=== PATIENT | male | born 1970 | race Caucasian/White ===

== ENCOUNTER → 2019-05-07 | Outpatient (CLI) | payer BC, SELFPAY ==
[2019-05-07 14:36] VITALS: BMI 29.1
[2019-05-07 16:50] LABS: Absolute Lymphocyte Count 2.43 X10^3/uL (0.83-4.51); Absolute Neutrophil Count 3.8 X10^3/uL (2.0-7.7); Basophil# 0.07 X10^3/uL; Eosinophil# 0.32 X10^3/uL; Eosinophils% 4.3 % (0-5); Hematocrit 50.3 % (40-54); Lymphocyte # 2.43 X10^3/ul (4.0); Mean Corp Hgb Conc 33.8 g/dL (32-36); Mean Corpuscular Hgb 30.4 pg (27.0-32.0); Mean Platelet Vol. 9.4 fl (6.2-12.0); Monocyte# 0.68 X10^3/uL; Monocyte% 9.2 % (0-10); NRBC Flagged by Analyzer 0 % (0-5); Neutrophil # 3.84 X10^3/uL (2.7-7.7); Neutrophil % 52.2 % (47-70); Platelet Count 284 K/mm3 (150-450); RBC Distribution Width CV 12.2 % (11.6-14.6); RBC Distribution Width SD 40.5 fl (35.1-43.9); Red Blood Count 5.59 M/mm3 (4.6-6.2); White Blood Count 7.4 K/mm3 (4.4-11.0)
[2019-05-07 17:06] LABS: ALB/GLOB Ratio 1.2 RATIO (0.9-2.4); AST(SGOT) 21 U/L (15-37); Alanine Aminotransfer ALT/SGPT 41 U/L (16-61); Alkaline Phosphatase 59 U/L (45-117); Anion Gap 3 (5-15); BUN 16 mg/dL (7-18); BUN/Creat Ratio 14.5 RATIO (10-20); Calcium,Total 8.8 mg/dL (8.5-10.1); Chloride 106 mmol/L (98-107); Cholesterol 252 mg/dL (200); EST Glomerular Filtration Rate 76 mL/min (>60); Est Glom Filt Rate - Afr Amer 92 mL/min (>60); Globulin 3.2 g/dL (2.2-4.2); Glucose 90 mg/dL (74-106); High Density Lipoprotein 53 mg/dL; Protein, Total 7.2 g/dL (6.4-8.2); Sodium Level 140 mmol/L (136-145); Triglycerides 231 mg/dL; Very Low Density Lipoprotein 46 mg/dL (5-40)
== END | disposition home or self-care (01) ==
LOC: BIMLAB 14:57
PROVIDERS: PCP Internal Medicine; Referring Provider Internal Medicine; Visit Provider Internal Medicine
DX: Z00.00 Encounter for general adult medical examination without abnormal findings (principal)
CPT/HCPCS: 36415; 80053; 80061; 85025

== ENCOUNTER → 2020-09-01 10:20 | Outpatient (CLI) | payer BC, SELFPAY ==
[2020-09-01 09:57] VITALS: BMI 29.1
[2020-09-01 12:26] LABS: Absolute Lymphocyte Count 2.31 X10^3/uL (0.83-4.51); Basophil# 0.08 X10^3/uL; Basophil% 1.1 % (0-1); Eosinophil# 0.45 X10^3/uL; Hematocrit 50.4 % (40-54); Hemoglobin 16.6 g/dL (13.0-16.5); Lymphocyte # 2.31 X10^3/ul (0.83-4.51); Mean Corp Hgb Conc 32.9 g/dL (32-36); Mean Corpuscular Hgb 29.7 pg (27.0-32.0); Mean Corpuscular Volume 90.2 fL (80-94); Mean Platelet Vol. 9.7 fl (6.2-12.0); Monocyte% 8.1 % (0-10); NRBC Flagged by Analyzer 0 % (0-5); Neutrophil # 3.98 X10^3/uL (2.7-7.7); Neutrophil % 53.5 % (47-70); Platelet Count 287 K/mm3 (150-450); RBC Distribution Width CV 12.5 % (11.6-14.6); RBC Distribution Width SD 41.1 fl (35.1-43.9); Red Blood Count 5.59 M/mm3 (4.6-6.2); White Blood Count 7.4 K/mm3 (4.4-11.0)
[2020-09-01 12:52] LABS: ALB/GLOB Ratio 1.2 RATIO (0.9-2.4); AST(SGOT) 14 U/L (15-37); Alanine Aminotransfer ALT/SGPT 34 U/L (16-61); Albumin, Serum 3.8 g/dL (3.2-5.0); Alkaline Phosphatase 57 U/L (45-117); Anion Gap 5 (5-15); BUN 16 mg/dL (7-18); BUN/Creat Ratio 13.1 RATIO (10-20); Calcium,Total 8.4 mg/dL (8.5-10.1); Chloride 106 mmol/L (98-107); Cholesterol 229 mg/dL (200); Creatinine, Serum 1.22 mg/dL (0.70-1.30); EST Glomerular Filtration Rate 67 mL/min (>60); Est Glom Filt Rate - Afr Amer 81 mL/min (>60); Globulin 3.3 g/dL (2.2-4.2); Glucose 97 mg/dL (74-106); High Density Lipoprotein 52 mg/dL; Potassium 4.1 mmol/L (3.5-5.1); Protein, Total 7.1 g/dL (6.4-8.2); Sodium Level 139 mmol/L (136-145); Triglycerides 187 mg/dL; Very Low Density Lipoprotein 37 mg/dL (5-40)
== END ==
PROVIDERS: PCP Internal Medicine; Visit Provider Internal Medicine
DX: Z00.00 Encounter for general adult medical examination without abnormal findings (principal)
CPT/HCPCS: 36415; 80053; 80061; 85025

== ENCOUNTER → 2021-10-27 | Outpatient (CLI) | payer BC, SELFPAY ==
--- NOTE | 2021-10-27 16:11 | RAD_ITS ---
STUDY: X-RAY LEFT FOOT, FIFTH TOE REASON FOR EXAM: Male, 51 years old. Left 5th toe pain, injury 5-6 days ago TECHNIQUE: 3 view(s) of the toe were obtained. COMPARISON: None. FINDINGS: Normal visualized metatarsus. Normal metatarsophalangeal (M.T.P) joint. Normal interphalangeal joints. There is an acute transversely oriented fracture through the proximal shaft of the proximal phalanx of the fifth toe with mild separation of fracture fragments. Diffuse soft tissue swelling of the fifth toe.. RAD/Toe(s) Min 2 Views IMPRESSION: Acute mildly displaced fracture of the proximal shaft of the proximal phalanx of the fifth toe Electronically Signed: Ubaldo Silverio MD at 16:50 EDT ,
--- NOTE | 2021-10-27 16:12 | RAD_ITS ---
STUDY: X-RAY - LEFT FOOT CLINICAL: Male, 51 years old. Left 5th metatarsal pain, foot injury TECHNIQUE: 3 view(s) of the foot. COMPARISON: None. FINDINGS: Normal talus, calcaneus, and tarsal bones. Normal visualized subtalar, talonavicular, calcaneocuboid, tarsal and tarsometatarsal articulations. Normal metatarsi. Normal metatarsophalangeal joint of the great toe. Normal tibial and fibular sesamoid bones. Normal interphalangeal joint of the great toe. Normal phalanges of the great toe. Normal second through fifth metatarsophalangeal joints. Normal interphalangeal joints of the lesser toes. There is an acute transverse fracture of the proximal shaft of the proximal phalanx of the fifth toe with very minor separation of fracture fragments Soft tissue swelling of the fifth toe.. RAD/Foot min 3 Views IMPRESSION: Acute mildly displaced fracture of the proximal phalanx of the fifth digit Electronically Signed: Ubaldo Silverio MD at 16:47 EDT ,
== END | disposition home or self-care (01) ==
PROVIDERS: PCP Internal Medicine; Referring Provider Physician Assistant; Visit Provider Physician Assistant
DX: M79.672 Pain in left foot (principal); M79.675 Pain in left toe(s)
CPT/HCPCS: 73630; 73660

== ENCOUNTER 2022-02-02 07:42 | Day surgery (SDC) | payer BC, SELFPAY ==
[2022-02-02] VITALS (12 sets, daily range): BP systolic 72–111; BP diastolic 38–63; PULSE 60–80; RESP 16–18; TEMP 36.4–36.8; O2SAT 95–97; BMI 31.8
[2022-02-02] MEDS: Lactated Ringers 1,000 ML 15 ML IV (08:07)
--- NOTE | 2022-02-02 08:32 | H&P.OPEN ---
HPI - General HPI Narrative CRISTIANA RAMIREZ, is a 51 M who presents for screening colonoscopy. Patient has never had a colonoscopy in the past. He denies any abdominal pain or blood in the stool. His mother had colon polyps with no history of colon cancer [facility] Medical History (Updated 01/29/22 @ 10:44 by Beatrice Hopkins) Alcohol use Back pain Colon cancer screening History of steroid therapy Hyperlipidemia Non-smoker Preventative health care Right shoulder pain Home Medications ibuprofen 200 mg tablet 200 mg PO Q6H PRN Pain 05/07/19 [History Last Taken Unknown] Allergy/AdvReac Type Severity Reaction Status Date / Time No Known Allergies Allergy Verified 02/02/22 07:59 Family History (Updated 01/14/22 @ 16:27 by Merlyn Zheng) Grandmother Heart disease Alcohol abuse Father Alcohol abuse Mother Colon polyps Other Diabetes Surgical History S/P ACL repair Social History household members: spouse and children Smoking Status: Never smoker alcohol intake: current alcohol intake frequency: holidays/special occasions only substance use type: does not use what type of physical activity do you participate in: weight training frequency: 3-4 times per week Past Medical/Surgical History Planned Operation Planned Operative Procedure/s: COLONOSCOPY Previous Hospitalizations/Surgeries HX Hospitalizations: No Any Problems With Anesthesia: No You/Your Family Experience Fever (Hyperthermia) With Anes: No Cholinesterase deficiency: No Cardiovascular Hx Hypertension: No Respiratory Hx Sleep Apnea: No Hx Respiratory Tract Infection/Cold (presently): No Do You Snore Loudly (louder than talking or can be heard): Yes Do You Often Feel Tired/ Fatigued/ Sleepy Dring Daytime?: No Has Anyone Observed You Stop Breathing During Sleep?: No Result (for STOP score): Negative Smoking Status: Never smoker Neurological Does patient have nerve stimulator: No Miscellaneous Recent Exposure to Contagious Disease: No Allergies No Known Allergies Allergy (Verified 02/02/22 07:59) Discharge Is Pt Admitted From a Penitentiary, or a [place] [facility]: No After D/C, Where Do you Plan to Go: Return Home Vital Signs Vital Signs Vital Signs: 02/02/22 08:00 02/02/22 08:00 Temperature 97.6 F L Temperature Source Temporal Pulse Rate 80 Respiratory Rate 18 Respiratory Pattern Normal Blood Pressure 111/63 Blood Pressure Mean 79 Blood Pressure Source Monitor Blood Pressure Position Sitting Blood Pressure Location Left Arm Pulse Ox 96 Oxygen Delivery Method Room Air Weight Weight: 209 lb 7.026 oz Body Mass Index (BMI) 31.8 Physical Exam Const alert and oriented x3 HEENT normocephalic Eyes PERRL Resp normal respiratory effort and normal air movement Cardio regular rate and regular rhythm GI soft to palpation, non-tender and non-distended Extremity normal to inspection Assessment & Plan Assessment/Plan (1) Colon cancer screening: PLAN: I explained endoscopy in detail to the patient. I explained the risks including but not limited to stroke or heart attack with anesthesia, perforation of the GI tract, bleeding, infection. I explained that any of these could necessitate further emergency surgery. The patient understands and all questions were answered sufficiently. The patient wishes to proceed with procedure. Teofilo Pollack MD Pager: [facility] [address] [place] [address] [address] [place] [address] Office: Surgery Risks - Colonoscopy Risks Include but are not Limited To: Risks include but are not limited to: Bleeding, perforation requiring further surgery, inability to complete colonoscopy requiring barium enema.
--- NOTE | 2022-02-02 08:58 | OP.COLON_ITS ---
Patient Name: Devon Aguilar Procedure Date: 02/02/2022 8:34 AM Date of : 1970 Age: 51 Procedure: Colonoscopy Indications: Screening for colorectal malignant neoplasm Providers: Teofilo Pollack MD Medicines: Monitored Anesthesia Care Patient Profile: This is a 51 year old male. Refer to note in patient chart for documentation of history and physical. Last Colonoscopy: none. The patient's first colonoscopy is today. Complications: No immediate complications. Procedure: Pre-Anesthesia Assessment: - Prior to the procedure, a History and Physical was performed, and patient medications and allergies were reviewed. The patient's tolerance of previous anesthesia was also reviewed. The risks and benefits of the procedure and the sedation options and risks were discussed with the patient. All questions were answered, and informed consent was obtained. Prior Anticoagulants: The patient has taken no previous anticoagulant or antiplatelet agents. After reviewing the risks and benefits, the patient was deemed in satisfactory condition to undergo the procedure. After I obtained informed consent, the scope was passed under direct vision. Throughout the procedure, the patient's blood pressure, pulse, and oxygen saturations were monitored continuously. The colonoscope was introduced through the anus and advanced to the cecum, identified by appendiceal orifice and ileocecal valve. The colonoscopy was performed without difficulty. The patient tolerated the procedure well. The quality of the bowel preparation was good. Scope In: 8:45:12 AM Scope Withdrawal Time 0 hours 4 minutes 57 seconds Scope Out: 8:55:46 AM Total Procedure Duration Time 0 hours 10 minutes 34 seconds Findings: The entire examined colon appeared normal on direct and retroflexion views. Impression: - The entire examined colon is normal on direct and retroflexion views. - No specimens collected. Recommendation: - Discharge patient to home. - Resume previous diet. - Continue present medications. - Repeat colonoscopy in 10 years for screening purposes. Procedure Code(s): --- Professional --- 02171, Colonoscopy, flexible; diagnostic, including collection of specimen(s) by brushing or washing, when performed (separate procedure) Diagnosis Code(s): --- Professional --- Z12.11, Encounter for screening for malignant neoplasm of colon CPT copyright 2017 [employer]. All rights reserved. The codes documented in this report are preliminary and upon credit investigator review may be revised to meet current compliance requirements. Teofilo Pollack MD 02/02/2022 8:58:19 AM This report has been signed electronically. Number of Addenda: 0 Note Initiated On: 02/02/2022 8:34 AM
--- NOTE | 2022-02-02 08:59 | OP.CCLET_ITS ---
02/02/2022 Chapito Navarro MD [address] [place] [address] [place] [address] Re : Colonoscopy procedure for Devon Aguilar Dear Dr. Navarro This procedure was performed on Wednesday, February 02, 2022. My impressions and recommendations are as follows: Impressions : - The entire examined colon is normal on direct and retroflexion views. - No specimens collected. Recommendations : - Discharge patient to home. - Resume previous diet. - Continue present medications. - Repeat colonoscopy in 10 years for screening purposes. My findings are described in the full procedure note, which is enclosed. If I can be of further assistance, please feel free to contact me at Doctor phone number(s): , Work: . Sincerely, Teofilo Pollack MD 02/02/2022 8:58:19 AM This report has been signed electronically.
== END 2022-02-02 10:01 | disposition home or self-care (01) ==
LOC: EN 07:42 → AC 07:43
PROVIDERS: PCP Internal Medicine; Referring Provider Internal Medicine; Visit Provider Surgery
PROC: 0DJD8ZZ Inspection of Lower Intestinal Tract, Via Natural or Artificial Opening Endoscopic (ICD-10-PCS; CPT 45378; principal; 2022-02-02 08:25)
DX: Z12.11 Encounter for screening for malignant neoplasm of colon (principal)
CPT/HCPCS: G0121; J7120; J2405

== ENCOUNTER 2022-02-10 17:00 | Outpatient (RCR) | payer BC, SELFPAY ==
--- NOTE | 2022-01-22 09:23 | HP.PTEVAL ---
Patient's Visit Information CRISTIANA RAMIREZ is a 51 year old M referred to Physical Therapy by SERGEY Holcomb with a diagnosis of DDD of c-spine and impingement of R shoulder. Date of Evaluation: 01/22/22 Physical Therapist: GABRIELE Samaniego - Visit Plan Frequency: 2x /Week Duration: 6 Weeks Plan: 2X/ week for 6 weeks for postural and scapular strength, stretching of the pec and anterior chest wall for posture, RC strength, Chin tucks and progress to chin tuck with extension, MT to lower and upper traps and c-spine paraspinals if needed with HEP. HEP: mid rows with blue band, chin tucks in supine with towel and progress at home to sitting if tolerated and watch posture. - Subjective This has been going on for over a year. He went in to the Dr initially and thought was a DDD but now Dr thinks that it might be some RC issues. He has some burning pain R collar bone, pain in R shoulder blade and some pain in the neck... these sx are occ. He has constant knots in his neck. He gets massages but they always come back. It hurts to lift out to the side or behind him or heavy weight. He has some pain occ with laying on the R shoulder. No N&T and no headaches. They did an x-ray of neck and R shoulder but no MRI. He just went in again because he was supposed to do PT but not getting better and actually got worse. 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 His stress level is normal moderate. He gets massages once every couple of months. He sleeps through the night but occ wakes up in pain. The pain is always a baseline pain but times it is worse. Pt is R handed. Dr gave pt a cortizone shot last visit (last week) and that seems to have helped. - Pain R shoulder pain Pain Intensity (Out of 10): 3 Pain Intensity Range: 7 Neck pain Pain Intensity (Out of 10): 1 Pain Intensity Range: 8 - Objective R handed: R 110# and L 115#. C-spine AROM: Flex 100% and ext 50%. SB R 75% and L 75%. Rot B 75%. AROM R shoulder flex is slightly limited but all other motions are WNL. Pt has tightness with IR on the R. UE MMT: R ER 16.5# and L ER 17.8#. R shoulder flex 13.2# and L 12.3#. R shoulder abd 11.8# and L 14.5#. + Lift off sign on the R. +HK for impingement. -Empty Can for pain and weakness. Palpation: tender under the R acromion for tenderness. Tender medial border of scapula. Posture: sits with increase PPT and rounded shoulders. Supine chin tucks with towel under his head X 10 (started with a little shoulder blade pain) after 10.. slightly better... X 10 even better... X 10 more.... X 10... no pain in R shoulder blade. Seated chin tucks 2 X 10 (pt feels pain with retraction and relieved with neutral position). Instructed pt in sitting with L-roll. Discussed posture at computer and to avoid chest press and bench press at the gym. - Balance/Special Test Scores Quick DASH Score: 29.5450 - Goals Goal 1:: I HEP Goal Time Frame: 4-6 Weeks Goal 2:: Sit with upright posture during treatment sessions Goal Time Frame: 4-6 Weeks Goal 3:: Decrease R arm pain with ADL's and lifting Goal Time Frame: 4-6 Weeks Goal 4:: Abolish R shoulder blade pain Goal Time Frame: 4-6 Weeks Goal 5:: Increase R shoulder ABD strength to equal the L (R shoulder abd 11.8# and L 14.5#) Goal Time Frame: 4-6 Weeks - Rehabilitation Potential Rehabilitation Potential: Good - Anticipated Interventions Patient/Client Instruction: Educate patient on: Condition, Plan of Care For the Purpose of:: To decrease pain, To decrease swelling/inflammation, To increase ROM, To improve nutrient delivery to tissue, To increase oxygenation perfusion, To improve muscle performance and motor function, To improve ability to perform ADL's, To increase tolerance to activity/condition/position, To improve performance and independence with ADL's, To improve ability of physical actions for home/community/work/leisure Therapeutic Exercise to Include: Strength training, Postural training, Flexibilty training, Neuromotor development, Passive ROM, Active ROM, Gabby Exercises, Scapular Strength/Stabilization For the Purpose of:: To decrease pain, To increase ROM, To improve nutrient delivery to tissue, To improve muscle performance and motor function, To improve ability to perform ADL's, To improve ability of physical actions for home/community/work/leisure, To improve health of tissue, To decrease soft tissue restriction, To increase flexibility/ROM Manual Therapy Techniques to Include: Mobilization, Passive ROM, Soft tissue mobilization For the Purpose of:: To decrease pain, To decrease swelling/inflammation, To increase ROM, To improve nutrient delivery to tissue, To increase oxygenation perfusion, To improve health of tissue Thank you for the opportunity to evaluate your patient. For Medicare and Medicare HMO plans, please review the plan of care and approve it. It will need to be FAXED BACK to us at [phone] for Medicare purposes. For Medicare only, by signing this I certify the plan of care. Please let me know if there are questions or concerns regarding this plan of care. Physician Signature: Date:
--- NOTE | 2022-02-10 18:35 | HP.PTREVAL_ITS ---
SERGEY Holcomb, It has been my pleasure to treat CRISTIANA RAMIREZ over the last 5 visits for DDD of c-spine and impingement of R shoulder. Please see the progress note below for an update on the physical therapy plan of care! Subjective: Pt reports that his R shoulder blade is sore tight and constant ache. He reports that he has pain off and on but it always comes back. He is still struggling with pain with R shoulder ER. Pt reports that he does not know what makes it better. When he leaves here he feels tender but that feels like a good thing but then that comes back. It is not unbearable but annoying. He has been watching his posture and sitting up straighter. 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 He gets woken up at night at least 3X/ week with R shoulder blade pain. Pt wakes up with a MAHMOOD 3-4 times a week. Objective/Function: R ER MMT: 13.8 (painful) and L 15#. C-spine AROM: flex 100%, Ext 75%, ROT B 75%, SB B 75% (SB to the R increases R scapular pain)... did X 10 repeated R SB and pt may have felt a little better. Did another set of X 10...and spot on R shoulder blade remains the same. Pt has no pain with R Empty can test but does have some pain with impingement sign on the R. Plan Plan: Hold chart as pt will discuss lack of progress with Dr and possible MRI. 2X/ week for 6 weeks for postural and scapular strength, stretching of the pec and anterior chest wall for posture, RC strength, Chin tucks and progress to chin tuck with extension, MT to lower and upper traps and c-spine paraspinals if needed with HEP. HEP: mid rows with blue band, chin tucks in supine with towel and progress at home to sitting if tolerated and watch posture. Balance/Gait/Functional tests - Balance/Special Test Scores Quick DASH Score: 29.5450 Goals Goal 1:: I HEP Goal Time Frame: 4-6 Weeks Goal Progress: Goal Met Goal 2:: Sit with upright posture during treatment sessions Goal Time Frame: 4-6 Weeks Goal Progress: Goal Met Goal 3:: Decrease R arm pain with ADL's and lifting Goal Time Frame: 4-6 Weeks Goal Progress: Progressing Goal 4:: Abolish R shoulder blade pain Goal Time Frame: 4-6 Weeks Goal Progress: Progressing Goal 5:: Increase R shoulder ABD strength to equal the L (R shoulder abd 11.8# and L 14.5#) Goal Time Frame: 4-6 Weeks Goal Progress: Not Progressing Anticipated Interventions Patient/Client Instruction: Educate patient on: Condition, Plan of Care For the Purpose of:: To decrease pain, To decrease swelling/inflammation, To increase ROM, To improve nutrient delivery to tissue, To increase oxygenation perfusion, To improve muscle performance and motor function, To improve ability to perform ADL's, To increase tolerance to activity/condition/position, To improve performance and independence with ADL's, To improve ability of physical actions for home/community/work/leisure Therapeutic Exercise to Include: Strength training, Postural training, Flexibilty training, Neuromotor development, Passive ROM, Active ROM, Gabby Exercises, Scapular Strength/Stabilization For the Purpose of:: To decrease pain, To increase ROM, To improve nutrient delivery to tissue, To improve muscle performance and motor function, To improve ability to perform ADL's, To improve ability of physical actions for home/community/work/leisure, To improve health of tissue, To decrease soft tissue restriction, To increase flexibility/ROM Manual Therapy Techniques to Include: Mobilization, Passive ROM, Soft tissue mobilization For the Purpose of:: To decrease pain, To decrease swelling/inflammation, To increase ROM, To improve nutrient delivery to tissue, To increase oxygenation perfusion, To improve health of tissue Please do not hesitate to contact me at [phone] by phone or if you have questions or concerns regarding this new plan of care! Sincerely, GABRIELE Samaniego
== END 2022-02-10 19:00 | disposition home or self-care (01) ==
LOC: PT 17:00
PROVIDERS: PCP Internal Medicine; Referring Provider Physician Assistant; Visit Provider Physician Assistant
DX: M47.812 Spondylosis without myelopathy or radiculopathy, cervical region (principal); M25.811 Other specified joint disorders, right shoulder
CPT/HCPCS: 97110; 97140; 97162; 97530

== ENCOUNTER → 2022-06-17 | Outpatient (CLI) | payer BC, SELFPAY ==
--- NOTE | 2022-06-17 18:16 | MRI_ITS ---
EXAM: MR RIGHT UPPER EXTREMITY WITHOUT INTRAVENOUS CONTRAST, SHOULDER CLINICAL INDICATION: pain TECHNIQUE: Multiplanar and multisequence MR images of the right shoulder without intravenous contrast. COMPARISON: No relevant prior studies available. FINDINGS: ARTIFACTS: Motion artifact limits assessment. TENDONS: SUPRASPINATUS: Very low grade focal intrasubstance tear of the supraspinatus tendon at the tendon footprint. Background of mild to moderate supraspinatus tendinosis. This type tear is likely be hidden or concealed at the time of arthroscopy. INFRASPINATUS: Unremarkable. Intact. SUBSCAPULARIS: Unremarkable. Intact. TERES MINOR: Unremarkable. Intact. BICEPS BRACHII, LONG HEAD: Long head biceps tendon is normal in position and appearance. The extra-articular biceps tendon is in the bicipital groove. LIGAMENTS: GLENOHUMERAL: Unremarkable. Intact. MUSCLES: Muscles are normal. No rotator cuff muscle atrophy. FLUID: Unremarkable. No joint effusion. No significant fluid in the subacromial/subdeltoid bursa. CARTILAGE: Unremarkable. Articular cartilage intact. GLENOID LABRUM: No labral tear. BONES/JOINTS: Small benign cystic lesions at the lateral aspect of the superior humeral head. Up to moderate hypertrophic degenerative changes of the acromioclavicular joint. Type II acromion with curved undersurface. No subacromial enthesophyte or os acromiale. Rotator interval is normal. OTHER SOFT TISSUES: Unremarkable. No rotator interval edema. MRI/Upper Ext Joint Only(Routine) IMPRESSION: 1. Very low grade focal intrasubstance tear of the supraspinatus tendon at the tendon footprint. This type tear is likely be hidden or concealed at the time of arthroscopy. 2. Small benign cystic lesions at the lateral aspect of the humeral head. 3. Up to moderate hypertrophic degenerative changes of the acromioclavicular joint. Electronically Signed: Hadley Wooten MD at 21:32 EDT ,
== END | disposition home or self-care (01) ==
LOC: MRI 17:58
PROVIDERS: PCP Internal Medicine; Referring Provider Physician Assistant; Visit Provider Physician Assistant
DX: M25.811 Other specified joint disorders, right shoulder (principal); M25.511 Pain in right shoulder; S43.60XA Sprain of unspecified sternoclavicular joint, initial encounter; X58.XXXA Exposure to other specified factors, initial encounter
CPT/HCPCS: 73221

== ENCOUNTER → 2024-03-12 | Outpatient (CLI) | payer BC, SELFPAY ==
[2024-03-12 12:08] LABS: Absolute Lymphocyte Count 1.74 X10^3/uL (0.83-4.51); Absolute Neutrophil Count 3.7 X10^3/uL (2.0-7.7); Basophil# 0.06 X10^3/uL; Basophil% 0.9 % (0-1); Eosinophils% 6.1 % (0-5); Hematocrit 51.9 % (40-54); Hemoglobin 17.2 g/dL (13.0-16.5); Lymphocyte # 1.74 X10^3/ul (0.83-4.51); Lymphocyte % 26.6 % (19-41); Mean Corp Hgb Conc 33.1 g/dL (32-36); Mean Corpuscular Volume 90.4 fL (80-94); Mean Platelet Vol. 9.6 fl (6.2-12.0); Monocyte# 0.66 X10^3/uL; Monocyte% 10.1 % (0-10); NRBC Flagged by Analyzer 0 % (0-5); Neutrophil # 3.66 X10^3/uL (2.7-7.7); Platelet Count 301 K/mm3 (150-450); RBC Distribution Width CV 12.2 % (11.6-14.6); Red Blood Count 5.74 M/mm3 (4.6-6.2); White Blood Count 6.5 K/mm3 (4.4-11.0)
[2024-03-12 12:35] LABS: ALB/GLOB Ratio 1.1 RATIO (0.9-2.4); AST(SGOT) 18 U/L (15-37); Alanine Aminotransfer ALT/SGPT 36 U/L (16-61); Albumin, Serum 3.9 g/dL (3.2-5.0); Alkaline Phosphatase 57 U/L (45-117); Anion Gap 6 (5-15); BUN 11 mg/dL (7-18); BUN/Creat Ratio 9.4 RATIO (10-20); Calcium,Total 9.4 mg/dL (8.5-10.1); Chloride 105 mmol/L (98-107); Cholesterol 258 mg/dL (200); Creatinine, Serum 1.17 mg/dL (0.70-1.30); EST Glomerular Filtration Rate 69 mL/min (>60); Est Glom Filt Rate - Afr Amer 84 mL/min (>60); Globulin 3.7 g/dL (2.2-4.2); Glucose 102 mg/dL (74-106); High Density Lipoprotein 56 mg/dL; PSA,Total - Annual Screen 0.87 ng/mL (0.00-4.00); Potassium 4.4 mmol/L (3.5-5.1); Protein, Total 7.6 g/dL (6.4-8.2); Sodium Level 139 mmol/L (136-145); Triglycerides 149 mg/dL; Very Low Density Lipoprotein 30 mg/dL (5-40)
== END | disposition home or self-care (01) ==
LOC: BIMLAB 10:06
PROVIDERS: PCP Internal Medicine; Referring Provider Internal Medicine; Visit Provider Internal Medicine
DX: Z00.00 Encounter for general adult medical examination without abnormal findings (principal)
CPT/HCPCS: 36415; 80053; 80061; 84153; 85025; G0103